=== PATIENT | male | born 1995 | race Hispanic/Latino ===

== ENCOUNTER 2020-05-19 17:01 | Emergency (ER) | payer OTHER ==
[2020-05-19] MEDS ORDERED: Tetracaine 0.5% OPHTH SOLN/PF 4 ML BOT ONE (17:23)
[2020-05-19] MEDS ORDERED: Fluorescein Opthalmic Strip ONE (17:23)
== END 2020-05-19 18:00 | disposition home or self-care (01) ==
LOC: MADERS 17:01
DX: H16.8 Other keratitis (principal)
CPT/HCPCS: 99283